=== PATIENT | male | born 1950 | race Caucasian/White ===

== ENCOUNTER 2016-07-27 15:29 | Emergency (ER) | payer BC, MEDICAID, MEDICARE ==
[2016-07-27] MEDS ORDERED: ASPIRIN 81 MG CHEW TAB ONE (15:59)
== END 2016-07-27 20:17 | disposition home or self-care (01) ==
LOC: ER 15:29
DX: R07.89 Other chest pain (principal); I10 Essential (primary) hypertension; J44.9 Chronic obstructive pulmonary disease, unspecified; I25.2 Old myocardial infarction; Z87.891 Personal history of nicotine dependence
CPT/HCPCS: 36415; 71010; 80053; 82550; 83735; 84484; 85025; 85610; 85730; 93005